=== PATIENT | male | born 1955 | race Caucasian/White ===

== ENCOUNTER → 2023-07-29 10:16 | Outpatient (REF) | payer MEDICARE, SELFPAY | LOC: RAD 10:16 | PROVIDERS: ATTENDING PHYSICIAN Internal Medicine Endocrinology, Diabetes & Metabolism; FAMILY PHYSICIAN Family Medicine | DX: R79.89 Other specified abnormal findings of blood chemistry (principal) | CPT/HCPCS: 76870; 93976 ==

== ENCOUNTER 2023-08-26 00:20 | Emergency (ER) | payer MEDICARE, SELFPAY ==
[2023-08-26 00:25] VITALS: BP 128/79; BMI 38.5
[2023-08-26 00:54] LABS: % Basophils 0.4 % (0-2); % Eosinophils 1.6 % (0-6); % Immature Granulocytes 1.3 % (0-0.5); % Lymphocytes 28.8 % (20.5-51.1); % Monocytes 12.5 % (1.7-9.3); % Neutrophils 55.4 % (42.2-75.2); Absolute Eosinophils 0.1 10^3/uL (0-0.7); Absolute Immature Granulocytes 0.1 10^3/uL (0-0.05); Absolute Monocytes 0.9 10^3/uL (0.1-0.6); Absolute Neutrophils 3.9 10^3/uL (1.4-6.5); Hematocrit 44.4 % (39.0-52.0); Hemoglobin 14.7 g/dL (13.0-18.0); Mean Corp Hgb Conc. 33.1 g/dL (33.0-37.0); Mean Corpuscular Hgb 30.7 pg (27.0-31.0); Mean Corpuscular Volume 92.7 fL (80.0-94.0); Mean Platelet Volume 9.9 fL (7.4-10.4); Nucleated Red Blood Cells % 0 % (-); Platelet Count 173 10^3/uL (130-400); Red Blood Cell Count 4.79 10^6/uL (4.70-6.10); Red Cell Dist. Width 14.6 % (11.5-14.5)
[2023-08-26 01:00] VITALS: BP 138/88
[2023-08-26 01:00] LABS: ALT (SGPT) 27 U/L (0-50); AST (SGOT) 40 U/L (17-59); Albumin 3.9 g/dl (3.5-5.0); Alkaline Phosphatase 67 U/L (38-126); Blood Urea Nitrogen 20 mg/dl (9-20); Carbon Dioxide 26 mmol/L (22-30); Chloride 104 mmol/L (98-107); Estimated Creatinine Clearance 110 ml/min; Glucose 150 mg/dl (70-99); Sodium 140 mmol/L (135-145); Total Protein 6.6 g/dl (6.3-8.2); eGFR > 60.00
--- NOTE | 2023-08-26 01:06 | ED.GENMED ---
Addendum entered and electronically signed by Bernard Barrientos DO 08/26/23 05:41:
Update, patient unable to tolerate lying down for CT despite 2 doses of lorazepam he uses BiPAP at home, has been compliant with his Eliquis since his surgery no tachycardia here no hypoxia I believe the risk-benefit of more sedatives does not
support pushing for the CT scan, as I believe the chance of having acute PE is low I reviewed my thought process with the patient, does have some lower extremity edema has used diuretic previously have suggested that he follow-up with his
spindle carver and/or his primary care provider
Original Note:
History of Present Illness
General
Chief Complaint: Breathing Problem
Source: patient
Exam Limitations: none
Time Seen by Provider: 08/26/23 00:39
Nursing documentation reviewed up to this point in time: agreed with
Travel History
Have you had any contact with someone who has COVID-19?: No
Do you have any symptoms of coronavirus? Fever > 100 degrees, chills, cough, shortness of breath, sore throat, loss of taste or smell, muscle aches, or headache?: No
History of Present Illness
History of Present Illness:
68-year-old male sleep apnea A-fib followed by Dr. Chase on Eliquis about 10 days status post low back procedure by portrait painter he had a screw inserted into his low back, Eliquis was held for 3 days since then he had increased lower
extremity edema, swelling, some shortness of breath no fever, no chest pains, still having pain in his back, previously on diuretic not now
Past History
Past History
ED Past Medical History: Arrthythmia (afib), HTN, Hypercholesterolemia, Other (Chronic cervical and lumbar disc disease) and Other (Obstructive sleep apnea, kidney stones, ulcerative colitis, peptic ulcer disease, pancreatitis); Negative Asthma, CAD
or Cancer
ED Past Surgical History: Cardiac (cardiac link), Cholecystectomy, Orthopedic and Other (Cervical laminectomy,); Negative Appendectomy, Bowel resection or Brain
Social History
Tobacco: Non-smoker
Alcohol: None
Drug: None
Personal: Single
Living: alone
Employment: Disabled
Family History
Family History: Hypertension, Early CAD and CAD; Negative Diabetes, Asthma or Cancer
Review of Systems
Review of Systems
All Other Systems: Not applicable
Constitutional: Denies fever
Respiratory: Reports trouble breathing; Denies cough
Cardiac: Reports no symptoms
ABD/GI: Reports no symptoms
: Reports frequency
Musculoskeletal: Reports muscle stiffness, edema and back pain
Skin: Reports no symptoms
Neurological: Reports no symptoms
Hematologic/Lymphatic: Reports no symptoms
Psychiatric: Reports no symptoms
Phy Exam
Physical Exam
Physical Exam:
Physical Exam
General: no apparent distress, not acutely ill
Neck: No jaundice
Heart: s1/s2 regular rate and rhythm, no murmur. equal radial pulses.
Lungs: Diminished bilateral
Abdomen: Nontender
Neuro: alert and oriented. no focal neurological deficits
Skin: no rash
Psychiatric: well kept. interactive and cooperative
Extremities: Nonpitting edema swelling bilateral calfs feet ankles
Scores
Heart Failure Risk
Heart Failure Risk Score: Yes
History of Stroke or TIA: No
History of intubation for respiratory distress: No
Heart rate on ED arrival >/= 110: No
SaO2 <90% on arrival on room air: No
HR >/=110 during 3min walk test (or too ill to perform test): No
ECG has acute ischemic changes: No
Urea >/=12mmol/L (BUN 33.6mg/dL): No
Serum CO2>/=35mmol/L: No
Troponin I or T elevated to [place] Level (0.4mg/dL): No
NT-proBNP >/=5,000ng/L (5,000pg/ml): No
HF Risk Score: 0
Admission Status: LOW RISK 2.8% Consider discharge to home with f/u visit to PCP/Barrel Straightener
Course
Orders/Labs/Results
Orders:
Orders
08/26/23 00:33
EKG [Electrocardiogram (*1)] Urgent
Reason for Study: Shortness of Breath
EKG- Treatment ONCE
08/26/23 00:36
Complete Blood Count/With Diff Urgent
Comprehensive Metabolic Panel Urgent
08/26/23 00:44
NT-proBNP Urgent
Comment: ADDED
Troponin I Urgent
08/26/23 01:02
Add On- LAB Urgent
Tests Added?: pBNP
08/26/23 01:03
CR Chest - 2 Views Urgent
Comment:
Reason For Exam: sob
US Periph Venous LOWER Ext Melquiades Urgent
Comment:
Reason For Exam: swelling
08/26/23 02:22
Furosemide [Lasix] 60 mg IV NOW STA
Abnormal Lab Results
08/26/23
00:36
RDW 14.6 H %
(11.5-14.5)
Abs Immat Gran (auto) 0.1 H 10^3/uL
(0-0.05)
Absolute Monos (auto) 0.9 H 10^3/uL
(0.1-0.6)
Immature Gran % 1.3 H %
(0-0.5)
Monocytes % 12.5 H %
(1.7-9.3)
Glucose 150 H mg/dl
(70-99)
08/26/23 00:36
08/26/23 00:36
Vital Signs
Initial and Last Documented VS:
Initial Vital Signs
Temp Pulse Resp BP Pulse Ox
98.8 F 79 22 128/79 96
08/26/23 00:25 08/26/23 00:25 08/26/23 00:25 08/26/23 00:25 08/26/23 00:25
Last Documented Vital Signs
Temp Pulse Resp BP Pulse Ox
98.8 F 77 14 138/88 98
08/26/23 00:25 08/26/23 01:00 08/26/23 01:00 08/26/23 01:00 08/26/23 01:00
MDM/Problems Addressed
Differential Diagnosis Includes:
Volume overload, right-sided heart failure dependent edema, DVT
MDM/Problems Addressed:
Lower extremity edema
Chronic conditions affecting care: HTN and Arrhythmia
Acute Exacerbation and/or Progression of Chronic Illness: HTN and Arrhythmia
*Radiology
Radiology exam reviewed: preliminary read by ED provider
*Pulse Oximetry
Patient hypoxic: no
*EKG
Interpreted by ED Provider?: Yes
Interpretation: normal
Comparison EKG: no comparison EKG present
Heart Rate: 78
Rate: normal
Rhythm: sinus
Ischemia: non-specific ST changes
*Photography Intern Interpretation
Rate: normal
Interpretation: normal
Heart Rate: 78
Rhythm: sinus
*Critical Care Note
Total Time (30-74mins, 75-104mins- exclusive of procedures): Not Applicable
Update Note
Update Note:
Update 1:42 AM labs including troponin proBNP noted verbal report ultrasounds bilaterally are negative
Chest x-ray noted perhaps some extra fluid, will start a diuretic
ED Attending Note
-
Portions of this chart may have been created with voice recognition software.� Occasional wrong word or��sound alike� substitutions may have occurred due to the inherent limitations of voice recognition software.
Discharge Plan
Departure
Prescriptions:
No Action
diltiazem HCl 240 MG capsule,extended release 24hr
240 mg PO DAILY
cyanocobalamin (vitamin B-12) 1,000 MCG tablet
1,000 mcg PO DAILY
red yeast rice 600 MG tablet
600 mg PO DAILY
duloxetine 30 MG capsule,delayed release(DR/EC)
30 mg PO HS
cholecalciferol (vitamin D3) [Vitamin D3] 125 mcg (5,000 unit) Tablet
125 mcg PO DAILY
flaxseed oil 1,000 mg Capsule
1,000 mg PO DAILY
Eliquis 5 MG tablet
5 mg PO BID
metformin 500 mg Tablet
500 mg PO BID
oxycodone-acetaminophen 10-325 mg tablet
1 tab PO Q4H PRN (Reason: moderate pain)
Patient Comments:
12/11/2022: last filled 11/20/22, 150 tabs for 30 days from [facility]
doxycycline hyclate 100 mg Tablet
100 mg PO BID
tamsulosin 0.4 mg capsule
0.4 mg PO BID
valacyclovir [Valtrex] 1 gram tablet
1,000 mg PO TID Qty: 30 0RF
Referrals:
Honorio Yuan Jr., DO [Family Provider] -
Interventions
Interventions:
*Risk Screen - Suicide Last Done: 08/26/23 00:25
*General Assessment Last Done: 08/26/23 00:25
*Neglect/Abuse Screening Last Done: 08/26/23 00:25
ED- Fall Risk Assessment Last Done: 08/26/23 00:36
*ED COVID-19 Vaccine History Last Done: 08/26/23 00:25
ED- Cardiac Assessment Last Done: 08/26/23 00:36
ED- Pulmonary Assessment Last Done: 08/26/23 00:36
Discharge Date and Time
Print Language: BELARUSIAN
[2023-08-26 01:14] LABS: Troponin I < 0.012 ng/ml
[2023-08-26 01:25] LABS: NT-proBNP 53.2 pg/ml
[2023-08-26 02:41] VITALS: BP 147/82
[2023-08-26] MEDS: LASIX 60 MG IV (02:41)
[2023-08-26] MEDS: ATIVAN 1 MG PO (03:02)
[2023-08-26] MEDS: ATIVAN 1 MG IV (04:54)
== END 2023-08-26 06:40 | disposition home or self-care (01) ==
LOC: EMR 00:20
PROVIDERS: EMERGENCY PHYSICIAN Emergency Medicine; FAMILY PHYSICIAN Family Medicine
DX: R60.0 Localized edema (principal); G47.33 Obstructive sleep apnea (adult) (pediatric); E78.00 Pure hypercholesterolemia, unspecified; I10 Essential (primary) hypertension; Z79.01 Long term (current) use of anticoagulants; Z82.49 Family history of ischemic heart disease and other diseases of the circulatory system; Z87.11 Personal history of peptic ulcer disease; Z87.442 Personal history of urinary calculi; Z90.49 Acquired absence of other specified parts of digestive tract
CPT/HCPCS: 99284; 96374; 96375; 71046; 80053; 83880; 84484; 85025; 93005; 93970

== ENCOUNTER 2023-09-25 19:10 | Emergency (ER) | payer MEDICARE, SELFPAY ==
[2023-09-25 19:17] VITALS: BP 156/100
[2023-09-25 19:29] VITALS: BP 153/118
[2023-09-25 20:06] VITALS: BMI 38.1
[2023-09-25 20:10] VITALS: BP 154/85
[2023-09-25 20:10] LABS: % Basophils 0.1 % (0-2); % Eosinophils 0.8 % (0-6); % Immature Granulocytes 0.3 % (0-0.5); % Lymphocytes 17.8 % (20.5-51.1); % Monocytes 9.2 % (1.7-9.3); % Neutrophils 71.8 % (42.2-75.2); Absolute Eosinophils 0.1 10^3/uL (0-0.7); Absolute Lymphocytes 1.4 10^3/uL (1.2-3.4); Absolute Monocytes 0.7 10^3/uL (0.1-0.6); Absolute Neutrophils 5.7 10^3/uL (1.4-6.5); Hematocrit 46.4 % (39.0-52.0); Hemoglobin 16.3 g/dL (13.0-18.0); Mean Corp Hgb Conc. 35.1 g/dL (33.0-37.0); Mean Corpuscular Hgb 30.8 pg (27.0-31.0); Mean Corpuscular Volume 87.7 fL (80.0-94.0); Mean Platelet Volume 9.9 fL (7.4-10.4); Nucleated Red Blood Cells % 0 % (-); Platelet Count 191 10^3/uL (130-400); Red Blood Cell Count 5.29 10^6/uL (4.70-6.10); Red Cell Dist. Width 13.2 % (11.5-14.5); White Blood Cell Count 7.9 10^3/uL (4.8-10.8)
[2023-09-25 20:29] LABS: ALT (SGPT) 33 U/L (0-50); AST (SGOT) 44 U/L (17-59); Albumin 4.6 g/dl (3.5-5.0); Alkaline Phosphatase 71 U/L (38-126); Blood Urea Nitrogen 18 mg/dl (9-20); Calcium 9.5 mg/dl (8.4-10.2); Carbon Dioxide 26 mmol/L (22-30); Chloride 103 mmol/L (98-107); Estimated Creatinine Clearance 90 ml/min; Glucose 128 mg/dl (70-99); Potassium 4.1 mmol/L (3.5-5.1); Sodium 140 mmol/L (135-145); Total Bilirubin 0.9 mg/dl (0.2-1.3); Total Protein 7.2 g/dl (6.3-8.2); eGFR > 60.00
[2023-09-25 20:34] LABS: Troponin I < 0.012 ng/ml
[2023-09-25 21:00] VITALS: BP 180/85
[2023-09-25 21:18] LABS: NT-proBNP 140 pg/ml
[2023-09-25 22:00] VITALS: BP 184/89
--- NOTE | 2023-09-25 22:46 | ED.GENMED ---
History of Present Illness
General
Chief Complaint: Chest Pain
Source: patient
Exam Limitations: none
Time Seen by Provider: 09/25/23 19:26
History of Present Illness
History of Present Illness:
68-year-old male who presents again with a variety of complaints. He states for the last 3 weeks has had lower extremity edema, off-and-on chest pain, headaches, insomnia and feeling like his esophagus is closing. Patient saw his PCP today and was
switched to a different diuretic. Patient also states a lot of the symptoms started shortly after back procedure. In addition at the same time he was started on Lyrica. His doctor recently stopped the Lyrica and he stopped it 2 days ago. The
patient states that at home he paces at night and cannot sleep. No fevers. No abdominal pain. Patient states the back procedure really did not do much for his back and he has had back pain. He was recently here and had bilateral lower extremity
Dopplers. He also has been on Lasix.
Past History
Past History
ED Past Medical History: Arrthythmia (afib), HTN, Hypercholesterolemia, Other (Chronic cervical and lumbar disc disease) and Other (Obstructive sleep apnea, kidney stones, ulcerative colitis, peptic ulcer disease, pancreatitis); Negative Asthma, CAD
or Cancer
ED Past Surgical History: Cardiac (cardiac link), Cholecystectomy, Orthopedic and Other (Cervical laminectomy,); Negative Appendectomy, Bowel resection or Brain
Social History
Tobacco: Non-smoker
Alcohol: None
Drug: None
Personal: Single
Living: alone
Employment: Disabled
Family History
Family History: Hypertension, Early CAD and CAD; Negative Diabetes, Asthma or Cancer
Phy Exam
Physical Exam
Physical Exam:
CONSTITUTIONAL Patient alert and oriented to person, place and time. Well-appearing. Vital signs reviewed. Obese
HEAD atraumatic, normocephalic.
EYES eyelids normal to inspection, Extraocular muscles intact, Conjunctiva normal, Sclera normal.
NECK normal range of motion, Trachea midline, no jugular venous distention.
RESPIRATORY CHEST No respiratory distress noted, Chest expansion equal, Bilateral breath sounds clear.
CARDIOVASCULAR regular rate and rhythm, Heart sounds normal.
ABDOMEN abdomen nontender, Bowel sounds normal. No distention.
BACK normal inspection, no obvious deformities
UPPER EXTREMITY range of motion normal, Motor strength normal, no cyanosis, no edema.
LOWER EXTREMITY range of motion normal, Motor strength normal, no cyanosis, bilateral lower extremity edema.
NEURO Speech normal, No focal motor deficits, [place] coma scale 15, Memory normal, Cranial Nerves intact to screening exam.
SKIN skin warm, dry, and normal in color.
PSYCHIATRIC patient oriented to person place and time, Normal affect.
Scores
Heart Score for Chest Pain Patients
STEMI patient?: Not applicable
Course
Orders/Labs/Results
Orders:
Orders
09/25/23 19:11
EKG [Electrocardiogram (*1)] Urgent
Reason for Study: Chest Pain
EKG- Treatment ONCE
09/25/23 19:16
Electrocardiogram (*1) Urgent
Reason for Study: Chest Pain
Cardiac Monitoring- Treatment ONCE
IV Insert/Care/Rem.- Treatment PRN
O2 Therapy [RESP] Urgent
Titrate/Wean O2 to maintain O2 sat greater than (%): 90
Special Instructions: Maintain sats >/=90%
Pulse Ox/spot Check [RESP] Urgent
Quantity: 1
Special Instructions: ON ROOM AIR
09/25/23 19:47
CR Chest - 2 Views Urgent
Comment:
Reason For Exam: cp, sob
Neck Soft Tissue [CR Soft Tissue Neck ] Urgent
Comment:
Reason For Exam: difficlty breathing, swallowing
09/25/23 20:01
Complete Blood Count/With Diff Urgent
Comprehensive Metabolic Panel Urgent
NT-proBNP Urgent
Comment: ADD ON
Troponin I Urgent
09/25/23 22:53
EKG [Electrocardiogram (*1)] Urgent
Reason for Study: Vertigo / Dizzy
EKG- Treatment ONCE
09/25/23 23:09
Dexamethasone Sod Phosphate [Decadron] 10 mg IV NOW STA
Lorazepam [Ativan] 1 mg IV NOW STA
Abnormal Lab Results
09/25/23
20:01
Absolute Monos (auto) 0.7 H 10^3/uL
(0.1-0.6)
Lymphocytes % 17.8 L %
(20.5-51.1)
Glucose 128 H mg/dl
(70-99)
09/25/23 20:01
09/25/23 20:01
Vital Signs
Initial and Last Documented VS:
Initial Vital Signs
Temp Pulse Resp BP Pulse Ox
98.1 F 87 18 156/100 98
09/25/23 19:17 09/25/23 19:17 09/25/23 19:17 09/25/23 19:17 09/25/23 19:17
Last Documented Vital Signs
Temp Pulse Resp BP Pulse Ox
98.1 F 82 19 160/91 97
09/25/23 19:17 09/25/23 23:45 09/25/23 23:45 09/25/23 23:00 09/25/23 22:45
MDM/Problems Addressed
MDM/Problems Addressed:
Lower extremity edema, medication side effect, anxiety, headache
*Radiology
Radiology exam reviewed: all reviewed NAD by ED Provider
*Pulse Oximetry
Patient hypoxic: no
*EKG
Interpreted by ED Provider?: Yes
Interpretation: normal
Rate: normal
Rhythm: sinus
Garita: normal axis
Ischemia: no ischemia
*Bridge Engineer Interpretation
Rate: normal
Interpretation: normal
Rhythm: sinus
*Critical Care Note
Total Time (30-74mins, 75-104mins- exclusive of procedures): Not Applicable
Data Reviewed
Review of Other/Old Records Reveals: Labs (Prior labs reviewed)
Source: patient
Further Testing Considered But Not Given:
Consider CTA but patient already on Eliquis
Patient Management
Escalation/DeEscalation of care consider admission/obs:
Lengthy discussion with the patient as he is very concerned. The patient has multiple symptoms. I suspect some of his symptoms are related to being on Lyrica as his symptoms started shortly after being started on Lyrica. He does have the common
side effects of Lyrica. The patient is well-appearing and no signs of congestive heart failure or ACS. Patient already started on diuretic by PCP. Will trial anxiolytics. 1 dose of steroid because of his feeling of tight throat. No stridor.
Already on Eliquis. Will need PCP follow-up. I did instruct the patient that he cannot drive on lorazepam
ED Attending Note
-
Portions of this chart may have been created with voice recognition software.� Occasional wrong word or��sound alike� substitutions may have occurred due to the inherent limitations of voice recognition software.
Discharge Plan
Departure
Patient Disposition: Home (Routine Discharge)
Date of Disposition: 09/25/23
Time of Disposition: 23:18
Patient with high blood pressure during this ER visit?: Yes
Discharge Problem:
Edema, Drug side effects, Atypical chest pain
Instructions: Swelling, Chest Pain PCP Follow Up, BLOOD PRESSURE
Prescriptions:
New
lorazepam 1 mg tablet
1 mg PO TID PRN (Reason: anxiety) Qty: 14 0RF
No Action
diltiazem HCl 240 MG capsule,extended release 24hr
240 mg PO DAILY
cyanocobalamin (vitamin B-12) 1,000 MCG tablet
1,000 mcg PO DAILY
duloxetine 30 MG capsule,delayed release(DR/EC)
30 mg PO HS
cholecalciferol (vitamin D3) [Vitamin D3] 125 mcg (5,000 unit) Tablet
125 mcg PO DAILY
Eliquis 5 MG tablet
5 mg PO BID
atorvastatin 20 mg Tablet
20 mg PO DAILY
pyridoxine (vitamin B6) [Vitamin B-6] 100 mg Tablet
100 mg PO DAILY
oxycodone-acetaminophen 7.5-325 mg tablet
1 tab PO Q4H PRN (Reason: moderate pain)
Patient Comments:
09/25/2023: last filled 09/19/23, 150 tabs for 25 days from [facility]
glipizide 5 mg Tablet
2.5 mg PO DAILY
Referrals:
Cesar Pitt MD [Family Provider] -
Activity Restrictions/Additional Instructions:
Possible side effect of Lyrica
Please see your doctor in the next 3 to 5 days for follow-up and reevaluation. Return admitted for worsening symptoms, shortness of breath, fevers, chest pain or any other concerns. Please elevate your legs when possible. Please continue your
home medications including your new medication by your doctor. Please do not drive or operate machinery while on lorazepam.
Interventions
Interventions:
*Risk Screen - Suicide Last Done: 09/25/23 19:17
*General Assessment Last Done: 09/25/23 19:17
*Neglect/Abuse Screening Last Done: 09/25/23 19:17
ED- Fall Risk Assessment Last Done: 09/25/23 20:10
*ED COVID-19 Vaccine History Last Done: 09/25/23 20:12
ED- Cardiac Assessment Last Done: 09/25/23 20:06
Discharge Date and Time
Print Language: AMERICAN
[2023-09-25 23:00] VITALS: BP 160/91
[2023-09-25] MEDS: ATIVAN 1 MG IV (23:41)
[2023-09-25] MEDS: DECADRON 10 MG IV (23:43)
== END 2023-09-26 00:21 | disposition home or self-care (01) ==
LOC: EMR 19:10
PROVIDERS: EMERGENCY PHYSICIAN Emergency Medicine; FAMILY PHYSICIAN Internal Medicine
DX: R07.89 Other chest pain (principal); R60.0 Localized edema; R51.9 Headache, unspecified; G47.00 Insomnia, unspecified; I10 Essential (primary) hypertension; I48.91 Unspecified atrial fibrillation; E78.00 Pure hypercholesterolemia, unspecified; G47.33 Obstructive sleep apnea (adult) (pediatric); K51.90 Ulcerative colitis, unspecified, without complications; Z90.49 Acquired absence of other specified parts of digestive tract; Z87.11 Personal history of peptic ulcer disease; Z87.442 Personal history of urinary calculi; Z88.8 Allergy status to other drugs, medicaments and biological substances; Z91.011 Allergy to milk products
CPT/HCPCS: 99285; 96374; 96375; 94760; 70360; 71046; 80053; 83880; 84484; 85025; 93005

== ENCOUNTER → 2024-02-24 12:03 | Outpatient (REF) | payer MEDICARE, SELFPAY | LOC: MRI 12:03 | PROVIDERS: ATTENDING PHYSICIAN Physician Assistant; FAMILY PHYSICIAN Internal Medicine | DX: D75.1 Secondary polycythemia (principal) | CPT/HCPCS: 72197; A9575 ==

== ENCOUNTER 2024-03-14 15:10 | Inpatient (IN) | payer MEDICARE, SELFPAY ==
[2024-03-14] VITALS (12 sets, daily range): BP systolic 132–180; BP diastolic 85–107; BMI 36.8
[2024-03-14] MEDS: ROXICODONE 5 MG PO ×2 (10:57→11:24)
--- NOTE | 2024-03-14 12:15 | ED.GENMED ---
History of Present Illness
General
Chief Complaint: Nose Bleed
Source: patient
Time Seen by Provider: 03/14/24 10:29
History of Present Illness
History of Present Illness:
68-year-old male with past medical history of paroxysmal atrial fibrillation, CHF, hypertension, previous GI bleeding, previous prostate cancer presenting to the emergency department for evaluation after he started having bilateral nare epistaxis
around 7 AM to 7:30 AM with persistent bleeding since. Patient states that he has had mild URI-like symptoms over the last 3 to 4 days. States he had bleeding 2 days ago but this resolved spontaneously. Denies any history of similar. Patient
notes that he wears a BiPAP machine at nighttime for sleep apnea. Patient's last dose of Eliquis was around 1030 to 11 PM last night. Denies any infectious symptoms.
Past History
Past History
ED Past Medical History: Arrthythmia (afib), HTN, Hypercholesterolemia, Other (Chronic cervical and lumbar disc disease) and Other (Obstructive sleep apnea, kidney stones, ulcerative colitis, peptic ulcer disease, pancreatitis); Negative Asthma, CAD
or Cancer
ED Past Surgical History: Cardiac (cardiac link), Cholecystectomy, Orthopedic and Other (Cervical laminectomy,); Negative Appendectomy, Bowel resection or Brain
Social History
Tobacco: Non-smoker
Alcohol: None
Drug: None
Personal: Single
Living: alone
Employment: Disabled
Family History
Family History: Hypertension, Early CAD and CAD; Negative Diabetes, Asthma or Cancer
Review of Systems
Review of Systems
All Other Systems: ROS reviewed and negative except as documented in HPI and ROS
Phy Exam
Physical Exam
Physical Exam:
GENERAL: Alert, speaking full sentences
HEAD: NCAT
EYE: clear conjunctiva
NECK: Supple
ENT: brisk bleeding from bilateral nares. Unable to identify area where bleeding originating. Significant bleeding noted in posterior oropharynx but maintaining airway. no tonsillar edema/exudates
CARDIAC: Regular rate and rhythm .
LUNGS: Clear breath sounds bilaterally, no acute respiratory distress, no wheezes/rales/rhonchi. Intermittently coughing up large dark clots
NEUROLOGICAL: Alert and oriented
SKIN: Warm and dry, skin intact.
MUSCULOSKELETAL: No edema, well perfused.
PSYCH: Normal and appropriate interaction.
Scores
Heart Failure Risk
Heart Failure Risk Score: Not Applicable
Heart Score for Chest Pain Patients
STEMI patient?: Not applicable
Withdrawal Assessment of Alcohol
Withdrawal Assessment Completed?: Not applicable
Course
Orders/Labs/Results
Orders:
Orders
03/14/24 Breakfast
NPO
Allow oral meds: Yes
Allow clear liquids: Sips of Clears
NPO with Ice Chips: Yes
Comment: can rsume low cholesterol 2000 harish diet when clear by ENT surgeon after OR
03/14/24 10:31
Tranexamic Acid 1,000 mg .ROUTE .STK-MED ONE
03/14/24 10:55
Oxycodone [Roxicodone] 5 mg .ROUTE .STK-MED ONE
03/14/24 11:18
Oxycodone [Roxicodone] 5 mg PO NOW STA
03/14/24 11:22
Oxycodone [Roxicodone] 5 mg .ROUTE .STK-MED ONE
03/14/24 11:24
Oxycodone [Roxicodone] 5 mg PO NOW STA
03/14/24 12:06
Blood Group&Type Stat
[employer] Wristband Number:
Complete Blood Count/No Diff Stat
PT/INR [Prothrombin Time] Stat
03/14/24 12:12
Type+Screen Stat
[employer] Wristband Number:
Prothrombin Complex(Pcc),Human [Kcentra] 2,500 unit Empty Viaflex Container 100 ml [Viaflex Empty Container] 0 ml IV NOW
Does patient have a dx of serious acute active bleeding?: Yes
Does patient have prior history of HIT?: No
03/14/24 12:28
Prothrombin Complex(Pcc),Human [Kcentra] 2,549 unit Empty Viaflex Container 100 ml [Viaflex Empty Container] 100 ml IV NOW
Does patient have a dx of serious acute active bleeding?: Yes
Does patient have prior history of HIT?: No
03/14/24 12:30
Dexamethasone Sod Phosphate [Decadron] 20 mg .ROUTE .STK-MED ONE
Lidocaine 2% Mpf [Xylocaine Mpf 2%] 100 mg .ROUTE .STK-MED ONE
Ondansetron Injectable [Zofran] 4 mg .ROUTE .STK-MED ONE
Propofol [Diprivan] 20 ml .ROUTE .STK-MED
Rocuronium Morgan [Rocuronium] 50 mg .ROUTE .STK-MED ONE
03/14/24 12:31
Fentanyl Citrate/Pf [Sublimaze] 100 mcg .ROUTE .STK-MED ONE
Midazolam HCl [Versed] 2 mg .ROUTE .STK-MED ONE
03/14/24 12:42
Lorazepam [Ativan] 0.25 mg IV NOW STA
03/14/24 12:43
Lorazepam [Ativan] 2 mg .ROUTE .STK-MED ONE
03/14/24 12:57
Admit/Transfer Patient As Directed
Co-Sign Provider:
Level of Care: Inpatient admission
Assign to:: Telemetry
Physician / Group: [email or web address]
Diagnosis: intractable epistaxis , Systolic HTN, Anxiety
Reason for Telemetry: Arrhythmia
Date to Stop Telemetry: 03/17/24
Time to Stop Telemetry: 11:00
Reason for Hospitalization: intractable epistaxis , Systolic HTN, Anxiety
Expected length of stay greater than two midnights?: Yes
ELOS- Estimated Length of Stay in days: 2
I certify the patient meets the requirements for IP care: Yes
03/14/24 12:59
Code Status As Directed
Resuscitation Status: Full Code
03/14/24 13:39
Fentanyl Citrate/Pf [Sublimaze] 25 mcg IV PACU-Q5MPRN PRN
Fentanyl Citrate/Pf [Sublimaze] 50 mcg IV PACU-Q5MPRN PRN
Meperidine [Demerol] 12.5 mg IV PACU-Q5MPRN PRN
Ondansetron Injectable [Zofran] 4 mg IV PACU-ONCEPRN PRN
Prochlorperazine [Compazine] 5 mg IV PACU-ONCEPRN PRN
Notify MD As Directed
Notify physician if: for SDS patients with known or suspected sleep obstructive sleep apnea, monitor in the
PACU.
Notify MD for any apneic/desaturation episodes
O2 Therapy [RESP] Urgent
Titrate/Wean O2 to maintain O2 sat greater than (%): 92
Special Instructions: -Provide supplemental oxygen to achieve O2 sat of 92% or greater.
-After 15 min, may wean O2 and discontinue if patient is able to maintain O2 sat of 92%
or greater during recovery period.
If patient is a discharge home, without oxygen therapy, notify anestheiologist if
unable to maintain O2 SAT of 92% or greater on room air for MD clearance.
03/14/24 14:05
Bacitracin Zinc [Bacitracin Ointment] 1 applic .ROUTE .STK-MED ONE
Bisacodyl [Dulcolax] 10 mg RECTAL [id number] PRN
Docusate W/Senna [Senokot-S] 1 tablet PO BIDPRN PRN
Lorazepam [Ativan] 1 mg IV Q6HPRN PRN
Polyethylene Glycol Powder [Miralax] 17 grams PO DAILYPRN PRN
03/14/24 14:05
ENT CONSULT Urgent
Consulting Provider: Faizan Yañez
Was physician already notified: Yes
Reason for Consult: intractable epistaxis , Systolic HTN, Anxiety
Activity As Directed
Activity Level: With Assistance
Intake/ Output As Directed
Frequency: Per unit guidelines
Pneumatic Compression Sleeves As Directed
Type: Knee high
Vital Signs As Directed
Frequency: Per unit guidelines
DX Deep Vein Thrombosis Video Routine
03/14/24 14:39
Dextrose 50%-Water [Dextrose 50% Syringe] 12.5 grams IV PROCEDURE-PRN PRN
Fentanyl Citrate/Pf [Sublimaze] 25 mcg IV PACU-Q5MPRN PRN
Fentanyl Citrate/Pf [Sublimaze] 50 mcg IV PACU-Q5MPRN PRN
Insulin Aspart [NOVOLOG vial] See Protocol SC PROCEDURE- Q2H PRN PRN
Meperidine [Demerol] 12.5 mg IV PACU-Q5MPRN PRN
Ondansetron Injectable [Zofran] 4 mg IV PACU-ONCEPRN PRN
Prochlorperazine [Compazine] 5 mg IV PACU-ONCEPRN PRN
Bedside Glucose Monitoring As Directed
Frequency: Q2H
Additional Instructions:: UNTIL PATIENT LEAVES PROCEDURE AREA
Notify MD As Directed
Notify physician if: for SDS patients with known or suspected sleep obstructive sleep apnea, monitor in the
PACU.
Notify MD for any apneic/desaturation episodes
O2 Therapy [RESP] Urgent
Titrate/Wean O2 to maintain O2 sat greater than (%): 92
Special Instructions: -Provide supplemental oxygen to achieve O2 sat of 92% or greater.
-After 15 min, may wean O2 and discontinue if patient is able to maintain O2 sat of 92%
or greater during recovery period.
If patient is a discharge home, without oxygen therapy, notify anestheiologist if
unable to maintain O2 SAT of 92% or greater on room air for MD clearance.
03/14/24 15:44
Comprehensive Metabolic Panel Urgent
03/14/24 16:00
Ampicillin/Sulbactam 1.5 G [Unasyn] 1.5 gm 0.9% Sodium Chloride [Nss] 50 ml IV Q6H
03/14/24 18:00
Atorvastatin [Lipitor] 20 mg PO QPM
03/15/24 06:00
Basic Metabolic Panel IN AM
03/15/24 08:00
Diltiazem Extended Release [Cardizem Cd] 240 mg PO DAILY
03/17/24 11:00
DC Protocol for Telemetry ONCE
Abnormal Lab Results
03/14/24 03/14/24
12: 14:33
RBC 6.39 H 10^6/uL
(4.70-6.10)
Hgb 20.3 H* g/dL
(13.0-18.0)
Hct 58.7 H %
(39.0-52.0)
MCH 31.8 H pg
(27.0-31.0)
POC Glucose 124 H mg/dl
(70-99)
03/14/24 12:06
03/14/24 12:06
Vital Signs
Initial and Last Documented VS:
Initial Vital Signs
Pulse Resp BP Pulse Ox
76 20 180/107 98
03/14/24 10:05 03/14/24 10:05 03/14/24 10:05 03/14/24 10:05
Last Documented Vital Signs
Temp Pulse Resp BP Pulse Ox
97.8 F 105 18 132/96 96
03/14/24 15:45 03/14/24 15:45 03/14/24 15:45 03/14/24 15:45 03/14/24 15:45
Procedures
Nosebleed
Drug treatment: Epinephrine and Tranexamic Acid
Treatment: local pressure applied and Posterior balloon (left nare)
Post treatment bleeding: other (continued brisk bleeding)
Additional information:
Despite left near posterior packing patient continued to have brisk bleeding from the right nare. Bleeding was less than from the left nare
MDM/Problems Addressed
Differential Diagnosis Includes:
posterior bleeding, anterior bleeding, anemia, viral URI
MDM/Problems Addressed:
68-year-old male presenting to the emergency department for significant bilateral nare epistaxis that started earlier this morning around 7 AM. Unfortunately patient had brisk bleeding from both naris and was unable to identify as to which nare
bleeding was more pronounced from. Patient stating that he is unsure as to which nare blood first as he states he experienced bleeding from both around the same time. I suspect patient's recent viral syndrome is likely contributing to symptoms.
Due to the risk of bleeding combined with patient being on Eliquis we first attempted holding pressure for approximately 30 minutes and had instilled aerosolized TXA with 5 cc being instilled into each nare. Bleeding persisted despite this.
Patient was agreeable to posterior packing and I was able to place a 7-1/2 cm Rhino Rocket into the left nare however patient did not tolerate this very well and I was unable to fully advance the Rhino Rocket into place with the bottom portion still
having about 1 cm remaining outside of the left nare but bleeding had subsided on the left side. Bleeding persisted on the right. Patient refusing packing on the right side secondary to pain. Attempted to treat with oxycodone. Patient initially
received a 5 mg dose but did not have any relief so was given a second oxycodone dose. I contacted ENT on-call and spoke with Dr. Yañez who initially advised for us to place packing to the right nare but explained that patient refusing as well as
due to patient being on BiPAP at nighttime for sleep patient was resistant to have this done. ENT coming to the bedside.
*Pulse Oximetry
Patient hypoxic: no
*Chassis Inspector Interpretation
Rate: normal
Rhythm: sinus
*Critical Care Note
Total Time (30-74mins, 75-104mins- exclusive of procedures): 95
comment:
Critical care statement: A total of 95 minutes of critical care time was provided for this patient. This includes management of unstable vital signs, evaluation of the patient at bedside, reviewing the patient's pertinent medical records, discussion
with consultants, review of old EKGs and review of pertinent medical records. This time with separate from time utilized to perform the aforementioned documented procedures
Data Reviewed
Review of Other/Old Records Reveals: Labs and Records
Patient Management
Discussion with other providers: Hospitalist and Precision Lens Grinder
Escalation/DeEscalation of care consider admission/obs:
ENT came to bedside. Was able to convince patient that they needed to place further packing. We were able to suction multiple large clots out of the right nare and place Merocel. Unfortunately patient continued to bleed around the Merocel.
Patient was consented for the OR by ENT. I had to remain at bedside due to the continued bleeding and holding pressure. Labs sent. Patient has a hemoglobin of 20.3 which I suspect is from hemoconcentration as patient has not eaten or drank
anything yet today. Due to patient being on Eliquis with a continued bleeding decision was made to reverse with Kcentra. Patient last dose of Eliquis was 1030 to 11 PM last night and is currently in a normal sinus rhythm. I notified cardiology
team who will consult on the patient. Hospitalist team accepts for continued evaluation and treatment. Anesthesia also coming to the bedside to take patient to the OR.
ED Attending Note
-
Portions of this chart may have been created with voice recognition software.� Occasional wrong word or��sound alike� substitutions may have occurred due to the inherent limitations of voice recognition software.
Discharge Plan
Departure
Patient Disposition: OR
Date of Disposition: 03/14/24
Time of Disposition: 12:15
Presentation/result/management discussed w/ accepting MD/DO: Hospitalist
Discharge Problem:
Posterior epistaxis
Interventions
Interventions:
*Risk Screen - Suicide Last Done: 03/14/24 10:05
*General Assessment Last Done: 03/14/24 13:08
*Neglect/Abuse Screening Last Done: 03/14/24 10:05
ED- Fall Risk Assessment Last Done: 03/14/24 13:08
*ED COVID-19 Vaccine History Last Done: 03/14/24 13:08
*Nursing Disposition Last Done: 03/14/24 13:08
ED-EENT Assessment Last Done: 03/14/24 11:57
Discharge Date and Time
Discharge Date/Time: 03/14/24 13:10
[2024-03-14 12:21] LABS: Hematocrit 58.7 % (39.0-52.0); Hemoglobin 20.3 g/dL (13.0-18.0); Mean Corp Hgb Conc. 34.6 g/dL (33.0-37.0); Mean Corpuscular Hgb 31.8 pg (27.0-31.0); Mean Corpuscular Volume 91.9 fL (80.0-94.0); Mean Platelet Volume 9.3 fL (7.4-10.4); Platelet Count 159 10^3/uL (130-400); Red Blood Cell Count 6.39 10^6/uL (4.70-6.10); Red Cell Dist. Width 13.3 % (11.5-14.5)
[2024-03-14 12:35] LABS: PT 14.5 Sec (11.4-14.6)
[2024-03-14] MEDS: ATIVAN 0.25 MG IV (12:50)
--- NOTE | 2024-03-14 12:51 | HPS.HSE ---
Family Physician
-
Family Physician: Cesar Pitt
Chief Complaint
-
Bleeding nose , on Eliquis for Prx AF
History of Present Illness
HPI
68M HX chr Eliquis on Prx AF urgently seen at ER pending OR:
- arrived to ER with bloody nos b/l nares for last 3hrs
- last dose of Elquis last night
- Recently sick with cold Sx for the 3 days
- bleeding started after blowing nose
- felt clogged ear
@ ER
Both nares are packed posteriorly
Intractable b/l epistaxix
Stat KCentra
Pending urgent OR by ENT
Medical History
Past Medical History
Past Medical History: Reports Arrhythmia (Prx AF on Eliquis ), HTN, Hypercholesterolemia and NIDDM
Past Surgical History: Reports Other
Social History
Unable to obtain full social history at this time due to: Other
Tobacco: Other
Alcohol: Other
Drug: Other
Personal: Other
Family History
Family History: Not pertinent
Allergies / Home Medications
Allergies reflects when Allergies were last updated in [facility].
Home Medications with original date entered in [facility]
Allergy/Medication List:
Allergies
Allergy/AdvReac Type Severity Reaction Status Date / Time
lactose Allergy diarrhea Verified 03/14/24 10:05
metformin Allergy Nausea / Verified 03/14/24 10:05
Vomiting
Home Medications
cyanocobalamin (vitamin B-12) 1,000 mcg tablet 1,000 mcg PO DAILY Supplement 06/14/19
diltiazem HCl 240 mg capsule,extended release 24 hr 240 mg PO DAILY Heart disease/condition 06/14/19
duloxetine 30 mg capsule,delayed release 30 mg PO HS Mental Health/Anxiety 09/21/21
cholecalciferol (vitamin D3) 125 mcg (5,000 unit) tablet (Vitamin D3) 125 mcg PO DAILY Supplement 12/12/21
apixaban 5 mg tablet (Eliquis) 5 mg PO BID Blood Clot Prevention/Tx 11/13/22
atorvastatin 20 mg tablet 20 mg PO DAILY 09/25/23
glipizide 5 mg tablet 2.5 mg PO DAILY 09/25/23
lorazepam 1 mg tablet 1 mg PO TID PRN anxiety #14 tabs 09/25/23
oxycodone-acetaminophen 7.5 mg-325 mg tablet 1 tab PO Q4H PRN moderate pain 09/25/23
pyridoxine (vitamin B6) 100 mg tablet (Vitamin B-6) 100 mg PO DAILY 09/25/23
Review of Systems
-
Constitutional: Reports No Symptoms
EENT: Reports Other (b/l bleeding nose )
Respiratory: Reports No Symptoms
Cardiac: Reports No Symptoms
Abdomen/GI: Reports No Symptoms
: Reports No Symptoms
Musculoskeletal: Reports No Symptoms
Skin: Reports No Symptoms
Neurological: Reports No Symptoms
Endocrine: Reports No Symptoms
Hematologic/Lymphatic: Reports No Symptoms
Psych: Reports No Symptoms
Physical Exam
Vital Signs
Vital Signs
Pulse Resp BP Pulse Ox
88 26 158/106 98
03/14/24 12:30 03/14/24 12:30 03/14/24 12:34 03/14/24 12:30
Physical Exam
General: Appears in Distress
HEENT: Other (b/l active bleeding nose despite s/p post nasal packing )
Respiratory: Clear
Cardiac: S1/S2 and Regular Rhythm
Breast: Deferred by me
GI: Soft, Non Tender, Non Distended and Normal Bowel Sounds
Genito-urinary: Deferred by me
Musculoskeletal: No Edema
Skin: Other
Neuro: AO x 3
Psych: Anxious
Laboratory Results
-
03/14/24 12:06
Laboratory Results
PT 14.5 Sec (11.4-14.6) 03/14/24 12:06
INR 1.10 03/14/24 12:06
Total Bilirubin Cancelled 03/14/24 12:06
AST Cancelled 03/14/24 12:06
ALT Cancelled 03/14/24 12:06
Alkaline Phosphatase Cancelled 03/14/24 12:06
Data Reviewed
-
Lab Data: Labs Reviewed by me
Impression/Plan
-
VSS
03/14/24
10:05 03/14/24
12:34
Pulse 76
Blood pressure 180/107 158/106
Data
09/25/23 03/14/24
20:01 12:06
WBC 8.0
Hgb 16.3 20.3 H*
ASSESSMENT & PLAN
Pending Rx reconciliation
Intractable acute epistaxis
last dose of Eliquis is last night
SBP elevated due to stress
Stable HD state
Initial Hgb is 20
- Blood T& S
- Blood consent by ER AP
- Trend H & H
- stat K Centra @ ER
- IV prophylactic IV Unasyn
- NPO for OR - can resume Low cholesterol 2000 harish diet after clear by ENT s/p OR
- ENT urgently consulted
Systolic HTN due to stress
HX Benign HTN
- IV Ativan 1mg Q6h PRN
- cont. OP Meds s/p Pending Rx reconciliation
DMT2
- add ISS low
- Hold Glipizide for now
HLD on Atorvastatin
DVT Px SCD
Full code
IP TLM
[2024-03-14] MEDS: KCENTRA 100 UNIT IV (12:59)
[2024-03-14 14:35] LABS: Glucose - Point of Care 124 mg/dl (70-99)
[2024-03-14] MEDS: SUBLIMAZE 50 MCG IV ×2 (15:20→15:31)
[2024-03-14 16:40] LABS: Glucose - Point of Care 180 mg/dl (70-99)
[2024-03-14] MEDS: UNASYN IV ×2 (16:55→21:54)
[2024-03-14] MEDS: FLUSH (NSS) 2 FLUSH IV (16:57)
[2024-03-14] MEDS: DILAUDID 0.25 MG IV ×2 (17:47→21:54)
[2024-03-14] MEDS: LIPITOR 20 MG PO (17:47)
[2024-03-14 20:24] LABS: Hematocrit 54.3 % (39.0-52.0); Hemoglobin 19.1 g/dL (13.0-18.0)
[2024-03-14 20:40] LABS: ALT (SGPT) 37 U/L (0-50); AST (SGOT) 35 U/L (17-59); Albumin 4.4 g/dl (3.5-5.0); Alkaline Phosphatase 40 U/L (38-126); Blood Urea Nitrogen 23 mg/dl (9-20); Calcium 8.8 mg/dl (8.4-10.2); Carbon Dioxide 24 mmol/L (22-30); Chloride 101 mmol/L (98-107); Estimated Creatinine Clearance 88 ml/min; Glucose 321 mg/dl (70-99); Potassium 4.7 mmol/L (3.5-5.1); Sodium 139 mmol/L (135-145); Total Bilirubin 1.3 mg/dl (0.2-1.3); Total Protein 7.1 g/dl (6.3-8.2); eGFR > 60.00
[2024-03-14 21:41] LABS: Glucose - Point of Care 277 mg/dl (70-99)
[2024-03-15] MEDS: UNASYN IV ×4 (03:10→22:36)
[2024-03-15 03:20] VITALS: BP 149/90
[2024-03-15] MEDS: DILAUDID 0.25 MG IV (03:53)
--- NOTE | 2024-03-15 04:27 | PTCARENOTE ---
Pt w packing to R nare s/p nasal endoscopy, no leaking noted. Pain managed w PRN pain meds. VS WNL. Pt ambulatory. Care ongoing.
[2024-03-15 04:57] LABS: Hemoglobin 18.2 g/dL (13.0-18.0)
[2024-03-15 05:15] LABS: Blood Urea Nitrogen 21 mg/dl (9-20); Calcium 8.9 mg/dl (8.4-10.2); Carbon Dioxide 25 mmol/L (22-30); Chloride 102 mmol/L (98-107); Estimated Creatinine Clearance 97 ml/min; Glucose 209 mg/dl (70-99); Potassium 4.2 mmol/L (3.5-5.1); Sodium 138 mmol/L (135-145); eGFR > 60.00
[2024-03-15 07:00] VITALS: BP 178/112
[2024-03-15 07:50] LABS: Glucose - Point of Care 188 mg/dl (70-99)
[2024-03-15] MEDS: CARDIZEM CD 240 MG PO (08:33)
[2024-03-15] MEDS: CYMBALTA DELAYED RELEASE 30 MG PO (08:33)
[2024-03-15] MEDS: ROXICODONE 5 MG PO ×2 (08:55→13:05)
[2024-03-15] MEDS: GLUCOTROL 2.5 MG PO (09:45)
[2024-03-15] MEDS: FLUSH (NSS) 1 FLUSH IV (09:56)
[2024-03-15 10:10] VITALS: BMI 36.5
[2024-03-15 11:23] LABS: Glucose - Point of Care 207 mg/dl (70-99)
--- NOTE | 2024-03-15 11:52 | CM ---
Met with pt at bedside
Pt reports he lives alone in a 1 story home; 2 steps to enter
Independent, active, driving
DME - BiPap -[facility]
SNF/HH - denies past hx
Has ride home at discharge
PCP - Cesar Pitt
Pharm - [facility]
Plan - anticipate home no needs when medically ready
[2024-03-15 12:00] VITALS: BP 136/82
[2024-03-15 12:20] LABS: Hematocrit 49.4 % (39.0-52.0)
--- NOTE | 2024-03-15 12:51 | W.PN.UPDATE ---
Update Note
Progress Note Update
Pt without any further epistaxis
VSS
Packing in place on right
OC - dry
A/P Epistaxis
Controlled
would leave packing in place for 2- 3 days total
Underlying IVELISSE
Ok for small dose of Ambien to help sleep at night
Should have pulse ox monitoring at night, oxygen if needed
Prophylactic antibiotics
--- NOTE | 2024-03-15 13:03 | PTCARENOTE ---
continuous pulse oximetry placed at this time, reading 95% on Room Air. care ongoing.
--- NOTE | 2024-03-15 13:11 | W.PN.HOSP.TC ---
Today's Communication/Plan
-
see A/P
Assessment / Plan
Assessment / Plan
HPI: 68 yo M PMH chronic Eliquis for Prx AF; p/w bloody nose bleed from BL nares.
Of note, he was recently sick with cold symptom for 3 days. Nose bleed started after blowing his nose.
A/P:
# Acute epistaxis, exacerbated by Eliquis use
Stable HD state
Blood consent obtained by ER AP
s/p K Centra from ER
s/p OR endoscopy and cautery under anesthesia for nose bleed
ENT recc to keep packing in place for 2- 3 days total
Cont prophylactic IV Unasyn
# Elevated Hgb
Initial Hgb is 20, today at 17.0
Pt states that he take testosterone per his urologist
# Paroxysmal A fib
Cont MOLDER BENCH Cardizem
# DMT2
ISS low
resumed MOLDER BENCH Glipizide
# HLD on Atorvastatin
# Chronic insomnia on Ambien MOLDER BENCH
DVT Px: SCD
Full code
DW RN
Anticipated Discharge: 24 - 48 hours
Subjective/Interval History
-
Date of Service: March 15, 2024
Objective Data
-
Labs:
Laboratory Results
03/15/24 03/15/24
04:38 12:03
Hgb 18.2 H 17.0
Hct 52.0 49.4
Sodium 138
Potassium 4.2
Chloride 102
Carbon Dioxide 25
BUN 21 H
Creatinine 1.0
Glucose 209 H
Calcium 8.9
Vital Signs:
Vital Signs
Temp Pulse Resp BP Pulse Ox
36.7 C 95 18 136/82 94
03/15/24 12:00 03/15/24 12:00 03/15/24 12:00 03/15/24 12:00 03/15/24 12:00
I&O
03/14/24 03/15/24 03/16/24
06:59 06:59 06:59
Intake Total 1460 / 1460
Balance 1460 / 1460
Review of Systems
-
All other systems: Reviewed and negative
Physical Exam
-
General: Well Developed, Well Nourished, No Apparent Distress, Comfortable and Conversant; Negative Respiratory Distress
HEENT: Normocephalic, Atraumatic, Nose Appears Normal, Ears Appear Normal and Other (R nare packed ); Negative Oxygen
Respiratory: Clear to Auscultation and Non Labored Respirations; Negative Accessory Resp Muscle Use
Cardiac: Regular Rhythm and S1/S2
GI: Soft, Nontender, Nondistended and Normal Bowel Sounds
Skin: Warm and Dry
Neuro: Awake, Alert, Oriented and AO x 3
Psych: Calm and Intact Judgement/Insight
Data Reviewed
-
Labs: Labs Reviewed by me
[2024-03-15 16:00] VITALS: BP 128/78
[2024-03-15 16:47] LABS: Glucose - Point of Care 139 mg/dl (70-99)
[2024-03-15] MEDS: LIPITOR 20 MG PO (17:19)
[2024-03-15] MEDS: ROXICODONE 10 MG PO (17:23)
[2024-03-15 19:11] VITALS: BP 142/76
[2024-03-15 21:25] LABS: Glucose - Point of Care 173 mg/dl (70-99)
[2024-03-15] MEDS: AMBIEN 5 MG PO (22:36)
[2024-03-15 23:14] VITALS: BP 118/63
[2024-03-16] MEDS: UNASYN IV ×2 (03:38→10:34)
[2024-03-16] MEDS: FLUSH (NSS) 2 FLUSH IV (03:38)
[2024-03-16 03:43] VITALS: BP 146/83
[2024-03-16 06:00] VITALS: BMI 36.5
[2024-03-16 07:00] VITALS: BP 128/81
[2024-03-16 07:23] LABS: Hematocrit 51.1 % (39.0-52.0); Hemoglobin 17.3 g/dL (13.0-18.0); Mean Corp Hgb Conc. 33.9 g/dL (33.0-37.0); Mean Corpuscular Hgb 31.9 pg (27.0-31.0); Mean Corpuscular Volume 94.1 fL (80.0-94.0); Mean Platelet Volume 9.7 fL (7.4-10.4); Platelet Count 167 10^3/uL (130-400); Red Blood Cell Count 5.43 10^6/uL (4.70-6.10); Red Cell Dist. Width 13.1 % (11.5-14.5); White Blood Cell Count 9.5 10^3/uL (4.8-10.8)
[2024-03-16 07:26] LABS: Blood Urea Nitrogen 19 mg/dl (9-20); Calcium 8.6 mg/dl (8.4-10.2); Carbon Dioxide 28 mmol/L (22-30); Chloride 100 mmol/L (98-107); Estimated Creatinine Clearance 88 ml/min; Glucose 157 mg/dl (70-99); Sodium 138 mmol/L (135-145); eGFR > 60.00
[2024-03-16 07:49] LABS: Glucose - Point of Care 153 mg/dl (70-99)
[2024-03-16] MEDS: GLUCOTROL PO ×2 (08:39→08:42)
[2024-03-16] MEDS: ROXICODONE 10 MG PO ×2 (08:39→13:29)
[2024-03-16] MEDS: CYMBALTA DELAYED RELEASE 30 MG PO (08:40)
[2024-03-16] MEDS: CARDIZEM CD 240 MG PO (08:40)
[2024-03-16 11:28] LABS: Glucose - Point of Care 189 mg/dl (70-99)
[2024-03-16] MEDS: GLUCOTROL 2.5 MG PO (11:30)
--- NOTE | 2024-03-16 12:21 | W.PN.HOSP.TC ---
Addendum entered and electronically signed by Carmen Aguillon MD 03/16/24 14:17:
Total DC time 40 minutes
discussed with ENT, cleared for discharge today
R nostril packing to be removed tomorrow in the office.
Resume Eliquis in 2 days.
Continue prophylactic antibiotic with Augmentin, 5 days course sent to his pharmacy
Original Note:
Today's Communication/Plan
-
see A/P
Assessment / Plan
Assessment / Plan
HPI: 68 yo M PMH chronic Eliquis for Prx AF; p/w bloody nose bleed from BL nares.
Of note, he was recently sick with cold symptom for 3 days. Nose bleed started after blowing his nose.
A/P:
# Acute epistaxis, exacerbated by Eliquis use
Stable HD state
Blood consent obtained by ER AP
s/p K Centra from ER
s/p OR endoscopy and cautery under anesthesia for nose bleed
ENT recc to keep packing in place for 2- 3 days total
Cont prophylactic IV Unasyn
# Elevated Hgb
Initial Hgb is 20, today at 17.3
Pt states that he take testosterone per his urologist
# Paroxysmal A fib
Cont SENIOR PRODUCT MANAGER Cardizem
# DMT2
ISS low
resumed SENIOR PRODUCT MANAGER Glipizide
# HLD on Atorvastatin
# Chronic insomnia on Ambien SENIOR PRODUCT MANAGER
DVT Px: SCD
Full code
DW RN
DW ENT. Pending reply wrt packing removal and dispo
Anticipated Discharge: Within 24 hours
Subjective/Interval History
-
Date of Service: March 16, 2024
Objective Data
-
Labs:
Laboratory Results
03/16/24
05:28
WBC 9.5
Hgb 17.3
Hct 51.1
Plt Count 167
Sodium 138
Potassium 4.0
Chloride 100
Carbon Dioxide 28
BUN 19
Creatinine 1.1
Glucose 157 H
Calcium 8.6
Vital Signs:
Vital Signs
Temp Pulse Resp BP Pulse Ox
36.8 C 61 20 128/81 96
03/16/24 11:10 03/16/24 11:10 03/16/24 11:10 03/16/24 08:40 03/16/24 11:10
I&O
03/15/24 03/16/24 03/17/24
06:59 06:59 06:59
Intake Total 1460 / 1460 900 / 900
Balance 1460 / 1460 900 / 900
Review of Systems
-
All other systems: Reviewed and negative
Physical Exam
-
General: Well Developed, Well Nourished, No Apparent Distress, Comfortable and Conversant; Negative Respiratory Distress
HEENT: Normocephalic, Atraumatic, Nose Appears Normal, Ears Appear Normal and Other (R nare packed ); Negative Oxygen
Respiratory: Clear to Auscultation and Non Labored Respirations; Negative Accessory Resp Muscle Use
Cardiac: Regular Rhythm and S1/S2
GI: Soft, Nontender, Nondistended and Normal Bowel Sounds
Skin: Warm and Dry
Neuro: Awake, Alert, Oriented and AO x 3
Psych: Calm and Intact Judgement/Insight
Data Reviewed
-
Labs: Labs Reviewed by me
--- NOTE | 2024-03-16 12:53 | W.PN.UPDATE ---
Update Note
Progress Note Update
follow up epistaxis
no bleeding
VSS
pack in place on right
OC - dry
A/p Epistaxis
ok to d/c today
d/c on po antibx such as Amox
follow up in office tomorrow morning for packing removal
--- NOTE | 2024-03-16 14:08 | W.DCSUMMARY ---
Discharge Summary
Discharge Data
Date of Admission: 03/14/24
Date of Discharge: 03/16/24
-
Pending Results: No
Hospital Course
Principal Diagnosis:
Acute epistaxis, exacerbated by Eliquis use
Chronic Diagnoses:�
Elevated hemoglobin, patient states that he takes testosterone per his urologist outpatient.
Paroxysmal atrial fibrillation on Eliquis prior to admission
[id number] diabetes
Hyperlipidemia
Chronic insomnia on Ambien
Consultations:�
ENT
Procedures:�
OR endoscopy and cautery under anesthesia for nose bleed
Clinical course:�
This is a 68-year-old male with past medical history as stated above, who presented with nose bleed.
Of note, he was recently sick with cold symptom and admitted to blowing his nose forcefully. His nose bleed started after blowing his nose.
Problem 1:
Acute epistaxis, exacerbated by Eliquis use.
He has been hemodynamically stable during his hospital stay.
He received Kcentra from the emergency room, and underwent endoscopy and cauterization in the OR for his nosebleed.
His right nose was packed and he has been informed to follow-up with ENT for packing removal the following day after discharge.
He can resume his prior to admission Eliquis in 2 days after discharge.
He received prophylactic Unasyn while in the hospital and was discharged with prophylactic Augmentin for 5 more days.
As for the rest of his medical problems, they were stable during his hospital stay.
Discharge Plan
-
Patient Disposition: Home (Routine Discharge)
Discharge Diagnosis/Procedures: Acute epistaxis, exacerbated by Eliquis use, status post OR endoscopy and cautery
Condition: Good
Diet: As tolerated
Activity: As tolerated
Driving Restrictions: As prior to admission
Activity Restrictions/Additional Instructions:
follow up in ENT office 03/17/24 for packing removal
Referrals:
Cesar Pitt MD [Family Provider] - in less than 1 week
Additional Discharge Medication Instructions: Hold Eliquis until 03/18/2024, resume on 03/18/2024
Continue prophylactic Augmentin for 5 days
Prescriptions:
New
amoxicillin-pot clavulanate 875-125 mg tablet
1 tab PO Q12H 5 Days Qty: 10 0RF
Continued
diltiazem HCl 240 MG capsule,extended release 24hr
240 mg PO DAILY
cyanocobalamin (vitamin B-12) 1,000 MCG tablet
1,000 mcg PO DAILY
duloxetine 30 MG capsule,delayed release(DR/EC)
30 mg PO DAILY
atorvastatin 20 mg Tablet
20 mg PO QPM
pyridoxine (vitamin B6) [Vitamin B-6] 100 mg Tablet
100 mg PO DAILY
oxycodone-acetaminophen 7.5-325 mg tablet
1 tab PO Q4HPRN PRN (Reason: moderate pain)
Patient Comments:
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
glipizide 5 mg Tablet
2.5 mg PO DAILY
Held
Eliquis 5 MG tablet
5 mg PO BID
Hold Instructions: Resume on 03/18/24.
Discharge Orders:
Discharge Patient (As Directed); Ordered 03/16/24
Ordered By: Carmen Aguillon
Discharge Date and Time
Print Language: TAJIK
== END 2024-03-16 14:08 | disposition home or self-care (01) | DRG 151 ==
LOC: 2 SOUTH 15:10
PROVIDERS: Physician Assistant Medical; ADMITTING PHYSICIAN Internal Medicine; ATTENDING PHYSICIAN Internal Medicine; CONSULT PHYSICIAN Otolaryngology; EMERGENCY PHYSICIAN Emergency Medicine; FAMILY PHYSICIAN Internal Medicine
PROC: 093K7ZZ Control Bleeding in Nasal Mucosa and Soft Tissue, Via Natural or Artificial Opening (ICD-10-PCS; 2024-03-14)
DX: R04.0 Epistaxis (principal); D68.32 Hemorrhagic disorder due to extrinsic circulating anticoagulants; E11.9 Type 2 diabetes mellitus without complications; I48.0 Paroxysmal atrial fibrillation; Z79.01 Long term (current) use of anticoagulants
CPT/HCPCS: 30905; 80048; 80053; 82962; 85014; 85018; 85027; 85610; 86850; 86900; 86901; 96374; 99291; 99292; J7168

== ENCOUNTER → 2024-04-21 13:11 | Outpatient (REF) | payer MEDICARE, SELFPAY | LOC: RAD 13:11 | PROVIDERS: ATTENDING PHYSICIAN Internal Medicine Critical Care Medicine | DX: J98.4 Other disorders of lung (principal) | CPT/HCPCS: 71046 ==

== ENCOUNTER → 2024-06-17 12:42 | Outpatient (REF) | payer MEDICARE, SELFPAY | LOC: RCS 12:42 | PROVIDERS: ATTENDING PHYSICIAN Internal Medicine Cardiovascular Disease; FAMILY PHYSICIAN Internal Medicine | DX: I48.0 Paroxysmal atrial fibrillation (principal); I77.810 Thoracic aortic ectasia | CPT/HCPCS: 93306 ==

== ENCOUNTER → 2024-06-17 13:04 | Outpatient (REF) | payer MEDICARE, SELFPAY | LOC: DHSLP 13:04 | PROVIDERS: ATTENDING PHYSICIAN Internal Medicine Critical Care Medicine; FAMILY PHYSICIAN Internal Medicine | DX: G47.33 Obstructive sleep apnea (adult) (pediatric) (principal) | CPT/HCPCS: 95811 ==

== ENCOUNTER → 2024-09-08 14:02 | Outpatient (REF) | payer MEDICARE, SELFPAY ==
[2024-09-08 14:48] LABS: % Basophils 0.3 % (0-2); % Eosinophils 1.4 % (0-6); % Immature Granulocytes 0.3 % (0-0.5); % Lymphocytes 24.9 % (20.5-51.1); % Monocytes 9.4 % (1.7-9.3); % Neutrophils 63.7 % (42.2-75.2); Absolute Eosinophils 0.1 10^3/uL (0-0.7); Absolute Lymphocytes 1.6 10^3/uL (1.2-3.4); Absolute Monocytes 0.6 10^3/uL (0.1-0.6); Hematocrit 49.5 % (39.0-52.0); Mean Corp Hgb Conc. 34.3 g/dL (33.0-37.0); Mean Corpuscular Hgb 31.8 pg (27.0-31.0); Mean Corpuscular Volume 92.5 fL (80.0-94.0); Mean Platelet Volume 9.3 fL (7.4-10.4); Nucleated Red Blood Cells % 0 % (-); Platelet Count 205 10^3/uL (130-400); Red Blood Cell Count 5.35 10^6/uL (4.70-6.10); Red Cell Dist. Width 12.7 % (11.5-14.5); White Blood Cell Count 6.3 10^3/uL (4.8-10.8)
== END ==
LOC: REG 14:02
PROVIDERS: ATTENDING PHYSICIAN Internal Medicine
DX: D75.1 Secondary polycythemia (principal)
CPT/HCPCS: 36415; 85025

== ENCOUNTER 2024-10-01 09:39 | Outpatient (RCR) | payer MEDICARE, SELFPAY ==
[2024-10-01 09:59] VITALS: BP 124/74
[2024-10-01 10:02] LABS: Hematocrit 47.6 % (39.0-52.0); Hemoglobin 17.1 g/dL (13.0-18.0)
[2024-10-01 11:07] VITALS: BP 103/78
[2024-10-01 11:20] VITALS: BP 131/81
[2024-10-01 11:25] VITALS: BP 127/78
== END 2024-10-04 08:24 | disposition home or self-care (01) ==
LOC: OID 09:39
PROVIDERS: ATTENDING PHYSICIAN Nurse Practitioner Family
DX: D45 Polycythemia vera (principal); Z79.01 Long term (current) use of anticoagulants
CPT/HCPCS: 85014; 85018; 99195

== ENCOUNTER → 2024-10-22 11:15 | Outpatient (REF) | payer MEDICARE, SELFPAY | LOC: RAD 11:15 | PROVIDERS: ATTENDING PHYSICIAN Internal Medicine | DX: M25.561 Pain in right knee (principal) | CPT/HCPCS: 73564 ==

== ENCOUNTER 2024-11-14 10:31 | Emergency (ER) | payer MEDICARE, SELFPAY ==
[2024-11-14] VITALS (11 sets, daily range): BP systolic 102–150; BP diastolic 75–88; BMI 36.8
[2024-11-14 11:33] LABS: Hematocrit 51.8 % (39.0-52.0); Hemoglobin 18.1 g/dL (13.0-18.0); Mean Corp Hgb Conc. 34.9 g/dL (33.0-37.0); Mean Corpuscular Volume 92.2 fL (80.0-94.0); Nucleated Red Blood Cells % 0 % (-); Platelet Count 192 10^3/uL (130-400); Red Cell Dist. Width 12.6 % (11.5-14.5)
[2024-11-14 11:46] LABS: ALT (SGPT) 39 U/L (0-50); AST (SGOT) 31 U/L (17-59); Albumin 4.6 g/dl (3.5-5.0); Alkaline Phosphatase 53 U/L (38-126); Blood Urea Nitrogen 27 mg/dl (9-20); Calcium 10.0 mg/dl (8.4-10.2); Carbon Dioxide 26 mmol/L (22-30); Chloride 107 mmol/L (98-107); Estimated Creatinine Clearance 80 ml/min; Glucose 147 mg/dl (70-99); Potassium 4.3 mmol/L (3.5-5.1); Sodium 140 mmol/L (135-145); Total Protein 7.6 g/dl (6.3-8.2); eGFR > 60.00
[2024-11-14] MEDS: CARDIZEM 25 MG IV (11:54)
[2024-11-14] MEDS: CARDIZEM 125 IV (11:54)
[2024-11-14] MEDS: NSS 1000 IV (11:55)
[2024-11-14 11:59] LABS: Magnesium 1.8 mg/dl (1.6-2.3)
[2024-11-14] MEDS: MAGNESIUM SULFATE 50 IV (12:51)
--- NOTE | 2024-11-14 14:57 | ED.GENMED ---
History of Present Illness
<Faizan Flores MD - Last Filed: 11/14/24 14:58>
General
Chief Complaint: Chest Pain
Time Seen by Provider: 11/14/24 11:03
<Trip Lockhart PA-C - Last Filed: 11/14/24 15:35>
History of Present Illness
History of Present Illness:
69-year-old male presents to the emergency department for of shortness of breath with exertion, dizziness, and severe fatigue for the past several days. He has a hard time breathing even at rest and notes that his resting pulse ox was below 95%
which concerned him that this could be a lung pathology. Denies any recent illnesses or fevers. Has been compliant with all of his home medications.
Past History
<Faizan Flores MD - Last Filed: 11/14/24 14:58>
Past History
ED Past Medical History: Arrthythmia (afib), HTN, Hypercholesterolemia, Other (Chronic cervical and lumbar disc disease) and Other (Obstructive sleep apnea, kidney stones, ulcerative colitis, peptic ulcer disease, pancreatitis); Negative Asthma, CAD
or Cancer
ED Past Surgical History: Cardiac (cardiac link), Cholecystectomy, Orthopedic and Other (Cervical laminectomy,); Negative Appendectomy, Bowel resection or Brain
Social History
Tobacco: Non-smoker
Alcohol: None
Drug: None
Personal: Single
Living: alone
Employment: Disabled
Family History
Family History: Hypertension, Early CAD and CAD; Negative Diabetes, Asthma or Cancer
Review of Systems
<Trip Lockhart PA-C - Last Filed: 11/14/24 15:35>
Review of Systems
Allergies reviewed?: Yes
All Other Systems: ROS reviewed and negative except as documented in HPI and ROS
Phy Exam
<Trip Lockhart PA-C - Last Filed: 11/14/24 15:35>
Physical Exam
Physical Exam:
GEN: Well appearing, NAD, WDWN
HEENT: Oral mucosa moist, no scleral icterus
Cardiac: Tachycardic and irregular, no murmur
Lung: No respiratory distress, no tachypnea, lungs clear to auscultation bilaterally
MSK: No gross deformity or injuries, no lower extremity edema
Skin: Good color, no pallor or jaundice, no rashes
Neuro: AO x3, moves all extremities freely
Psych: Calm, cooperative
Scores
<Trip Lockhart PA-C - Last Filed: 11/14/24 15:35>
Heart Score for Chest Pain Patients
STEMI patient?: No
History: Slightly or Non-Suspicious
ECG: Normal
Age: >/= 65 years
Risk Factors: >/= 3 Risk Factors or History of CAD
Troponin: </= Normal Limit
Heart Score for Chest Pain Patients: 4
Heart Score Risk: 20.3% MACE over next 6 weeks
Course
<Faizan Flores MD - Last Filed: 11/14/24 14:58>
Orders/Labs/Results
Orders:
Orders
11/14/24 10:33
EKG [Electrocardiogram (*1)] Urgent
Reason for Study: Chest Pain
EKG- Treatment ONCE
11/14/24 11:22
Complete Blood Count/With Diff Urgent
Comprehensive Metabolic Panel Urgent
Magnesium Urgent
Comment: ADD ON
11/14/24 11:45
Add On- LAB Urgent
Tests Added?: magnesium
0.9% Sodium Chloride 1000 ml [Nss] 1,000 ml IV BOLUS
Diltiazem 125 mg/125 ml Nss [Cardizem] 125 mg in 125 ml IV PER PROTOCOL
Initial dose in mg/hr, then titrate:: 5
Titrate to keep:: Heart rate 80-100 bpm
Titrate by mg/hr:: 5 mg/hr
Frequency of titrations (minutes):: 15
Maximum dose in mg/hr:: 15
Diltiazem HCl [Cardizem] 25 mg IV NOW STA
11/14/24 12:39
Magnesium Sulfate 2 Gram/50 ml [Magnesium Sulfate] 2 gram in 50 ml IV NOW
11/14/24 14:15
Propofol [Diprivan] 20 ml .ROUTE .STK-MED
Abnormal Lab Results
11/14/24
11:22
Hgb 18.1 H g/dL
(13.0-18.0)
MCH 32.2 H pg
(27.0-31.0)
Absolute Monos (auto) 0.8 H 10^3/uL
(0.1-0.6)
Monocytes % 10.2 H %
(1.7-9.3)
BUN 27 H mg/dl
(9-20)
Glucose 147 H mg/dl
(70-99)
11/14/24 11:22
11/14/24 11:22
Vital Signs
Initial and Last Documented VS:
Initial Vital Signs
Temp Pulse Resp BP Pulse Ox
97.6 F 70 16 102/79 98
11/14/24 10:34 11/14/24 10:34 11/14/24 10:34 11/14/24 10:34 11/14/24 10:34
Last Documented Vital Signs
Temp Pulse Resp BP Pulse Ox
98 F 74 20 135/85 99
11/14/24 15:04 11/14/24 15:04 11/14/24 15:04 11/14/24 15:04 11/14/24 15:04
<Trip Lockhart PA-C - Last Filed: 11/14/24 15:35>
Orders/Labs/Results
Orders:
Orders
11/14/24 10:33
EKG [Electrocardiogram (*1)] Urgent
Reason for Study: Chest Pain
EKG- Treatment ONCE
11/14/24 11:22
Complete Blood Count/With Diff Urgent
Comprehensive Metabolic Panel Urgent
Magnesium Urgent
Comment: ADD ON
11/14/24 11:45
Add On- LAB Urgent
Tests Added?: magnesium
0.9% Sodium Chloride 1000 ml [Nss] 1,000 ml IV BOLUS
Diltiazem 125 mg/125 ml Nss [Cardizem] 125 mg in 125 ml IV PER PROTOCOL
Initial dose in mg/hr, then titrate:: 5
Titrate to keep:: Heart rate 80-100 bpm
Titrate by mg/hr:: 5 mg/hr
Frequency of titrations (minutes):: 15
Maximum dose in mg/hr:: 15
Diltiazem HCl [Cardizem] 25 mg IV NOW STA
11/14/24 12:39
Magnesium Sulfate 2 Gram/50 ml [Magnesium Sulfate] 2 gram in 50 ml IV NOW
11/14/24 14:15
Propofol [Diprivan] 20 ml .ROUTE .STK-MED
Abnormal Lab Results
11/14/24
11:22
Hgb 18.1 H g/dL
(13.0-18.0)
MCH 32.2 H pg
(27.0-31.0)
Absolute Monos (auto) 0.8 H 10^3/uL
(0.1-0.6)
Monocytes % 10.2 H %
(1.7-9.3)
BUN 27 H mg/dl
(9-20)
Glucose 147 H mg/dl
(70-99)
11/14/24 11:22
11/14/24 11:22
Vital Signs
Initial and Last Documented VS:
Initial Vital Signs
Temp Pulse Resp BP Pulse Ox
97.6 F 70 16 102/79 98
11/14/24 10:34 11/14/24 10:34 11/14/24 10:34 11/14/24 10:34 11/14/24 10:34
Last Documented Vital Signs
Temp Pulse Resp BP Pulse Ox
98 F 74 20 135/85 99
11/14/24 15:04 11/14/24 15:04 11/14/24 15:04 11/14/24 15:04 11/14/24 15:04
Procedures
<Faizan Flores MD - Last Filed: 11/14/24 14:58>
Moderate Sedation
Moderate Sedation Start Time(when first medication is given): 14:24
Moderate Sedation Procedure End Time: 14:34
<Trip Lockhart PA-C - Last Filed: 11/14/24 15:35>
Cardioversion
Indication:: Afib
Performed by:: Trip Lockhart PA-C, Bradley Flores MD
Synchronized?: Yes
Energy Used: 150 joules
Number of attempts: 1
Successful?: Yes
ASA Risk Score: Class III
Any reaction or bad outcome to prior sedation/anesthesia?: No history of a reaction
Sedation level to be attained: moderate
Chart and allergies reviewed: Yes
Patient reassessed prior to sedation: Yes
Time out completed at (validating right patient & procedure): 14:24
History of difficult intubation: No
Airway free of obstruction: Yes
Patient has a gag reflex: Yes
Patient is able to open mouth: Yes
Patient has no dentures: Yes
Patient has no loose teeth: No
Medication administered by Provider during Moderate Sedation: IV Propofol (mg)
Total dose administered: 60
Time drug administered: 14:24
Start Time: 14:24
Stop Time: 14:34
<Trip Lockhart PA-C - Last Filed: 11/14/24 15:35>
MDM/Problems Addressed
MDM/Problems Addressed:
Patient presented with rapid atrial fibrillation and exertional dyspnea as a result. He was initially started on IV rate control with good results however remained in A-fib, given that he is adequately anticoagulated the decision was made to
proceed with electrical cardioversion. Cardioversion was uncomplicated and successful with 1 attempt. He remained in normal sinus rhythm at time of discharge, recommend outpatient cardiology follow-up however no medication changes are warranted at
this time
<Faizan Flores MD - Last Filed: 11/14/24 14:58>
*Pulse Oximetry
SaO2: 95
<Trip Lockhart PA-C - Last Filed: 11/14/24 15:35>
*Pulse Oximetry
Patient hypoxic: no
*Critical Care Note
Total Time (30-74mins, 75-104mins- exclusive of procedures): Not Applicable
ED Attending Note
<Faizan Flores MD - Last Filed: 11/14/24 14:58>
ED Attending Note
Patient seen and examined by attending physician: Yes
ED Attending Note:
I have seen and evaluated the patient with a [id number] encounter. I have spoken to the advance practicer provider and involved in the medical history, the physical exam, medical decision making.
Evaluation and management service: agree unless noted differently below.
Results interpretation: agree unless noted differently below.
Focused HPI: 69-year-old male presents with chest pain for the past few days. Found to be in A-fib with RVR. He is on Eliquis and compliant.
Physical exam: Awake alert no distress. Irregularly irregular rhythm with tachycardia. No edema.
Medical Decision Makin-year-old male presents with A-fib with RVR. Given diltiazem but still tachycardic ultimately decision made to cardiovert. Cardioverted as documented in procedure note. Will observe post cardioversion and plan for
discharge with cardiology referral.
-
Portions of this chart may have been created with voice recognition software.� Occasional wrong word or��sound alike� substitutions may have occurred due to the inherent limitations of voice recognition software.
Discharge Plan
Departure
Patient Disposition: Home (Routine Discharge)
Date of Disposition: 11/14/24
Time of Disposition: 15:29
Patient with high blood pressure during this ER visit?: No
Discharge Problem:
Atrial fibrillation with RVR
Instructions: Atrial fibrillation - Discharge instructions, Sedation for procedures in adults - ED discharge instructions
Prescriptions:
No Action
diltiazem HCl 240 MG capsule,extended release 24hr
240 mg PO DAILY
cyanocobalamin (vitamin B-12) 1,000 MCG tablet
1,000 mcg PO DAILY
duloxetine 30 MG capsule,delayed release(DR/EC)
30 mg PO DAILY
Eliquis 5 MG tablet
5 mg PO BID
atorvastatin 20 mg Tablet
20 mg PO QPM
pyridoxine (vitamin B6) [Vitamin B-6] 100 mg Tablet
100 mg PO DAILY
oxycodone-acetaminophen 7.5-325 mg tablet
1 tab PO Q4HPRN PRN (Reason: moderate pain)
Patient Comments:
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
glipizide 5 mg Tablet
2.5 mg PO DAILY
coenzyme Q10 [Co Q-10] 10 mg Capsule
30 mg PO DAILY
cholecalciferol (vitamin D3) [Vitamin D3] 10 mcg (400 unit) Capsule
10 mcg PO DAILY
red yeast rice 600 mg Capsule
1,200 mg PO DAILY
alpha lipoic acid 100 mg Capsule
100 mg PO DAILY
Referrals:
Cesar Pitt MD [Family Provider, Internal Medicine]
Interventions
Interventions:
*Risk Screen - Suicide Last Done: 11/14/24 10:34
*General Assessment Last Done: 11/14/24 11:17
*Neglect/Abuse Screening Last Done: 11/14/24 10:34
*ED- Fall Risk Assessment Last Done: 11/14/24 11:17
*ED COVID-19 Vaccine History Last Done: 11/14/24 11:17
ED- Cardiac Assessment Last Done: 11/14/24 11:17
Discharge Date and Time
Print Language: MACEDONIAN
== END 2024-11-14 15:45 | disposition home or self-care (01) ==
LOC: EMR 10:31
PROVIDERS: EMERGENCY PHYSICIAN Emergency Medicine; FAMILY PHYSICIAN Internal Medicine
DX: I48.91 Unspecified atrial fibrillation (principal); E78.00 Pure hypercholesterolemia, unspecified; G47.33 Obstructive sleep apnea (adult) (pediatric); I10 Essential (primary) hypertension; I25.10 Atherosclerotic heart disease of native coronary artery without angina pectoris; Z79.01 Long term (current) use of anticoagulants; Z87.11 Personal history of peptic ulcer disease; Z90.49 Acquired absence of other specified parts of digestive tract
CPT/HCPCS: 92960; 99152; 96374; 96375; 96361; 99285; 80053; 83735; 85025; 93005

== ENCOUNTER → 2024-11-16 14:29 | Outpatient (REF) | payer MEDICARE, SELFPAY | LOC: RAD 14:29 | PROVIDERS: ATTENDING PHYSICIAN Nurse Practitioner; FAMILY PHYSICIAN Internal Medicine | DX: R06.02 Shortness of breath (principal) | CPT/HCPCS: 71046 ==

== ENCOUNTER → 2024-11-26 10:43 | Outpatient (REF) | payer MEDICARE, SELFPAY ==
[2024-11-26 11:45] LABS: Troponin I < 0.012 ng/ml
== END ==
LOC: REG 10:43
PROVIDERS: ATTENDING PHYSICIAN Internal Medicine Cardiovascular Disease; FAMILY PHYSICIAN Internal Medicine
DX: I48.0 Paroxysmal atrial fibrillation (principal); R06.02 Shortness of breath; Z86.79 Personal history of other diseases of the circulatory system; J98.4 Other disorders of lung; G47.33 Obstructive sleep apnea (adult) (pediatric); R07.89 Other chest pain
CPT/HCPCS: 36415; 83880; 84484

== ENCOUNTER 2024-12-23 13:52 | Outpatient (RCR) | payer MEDICARE, SELFPAY ==
[2024-12-23 14:22] VITALS: BP 160/87
[2024-12-23 14:55] VITALS: BP 155/88
[2024-12-23 15:00] VITALS: BP 158/99
== END 2024-12-24 09:51 | disposition home or self-care (01) ==
LOC: OID 13:52
PROVIDERS: ATTENDING PHYSICIAN Nurse Practitioner Family
DX: D45 Polycythemia vera (principal)
CPT/HCPCS: 99195

== ENCOUNTER 2025-03-11 09:55 | Emergency (ER) | payer MEDICARE, SELFPAY ==
[2025-03-11 10:00] VITALS: BP 170/114
--- NOTE | 2025-03-11 10:22 | ED.GENMED ---
History of Present Illness
General
Chief Complaint: Chest Pain
Source: patient
Exam Limitations: none
Time Seen by Provider: 03/11/25 10:22
Nursing documentation reviewed up to this point in time: agreed with
History of Present Illness
History of Present Illness:
Patient is a 69-year-old male with past medical history of paroxysmal A-fib on Eliquis paroxysmal SVT previous implantable loop monitor 2020 CHF hypertension sleep apnea on BiPAP, polycythemia vera(does get phlebotomy every 6 weeks and is due next
week presents to the ER for evaluation. Patient has had chest tightness intermittently for the pastseveral weeks however this has been constant for the past 2 days. He does feel short of breath with this. He has multiple other complaints. He
has had decreased appetite increased weight gain, headache chills fatigue dizziness. He reports symptoms are not necessarily new and he has had them again for the past several weeks. He denies any recent illness fever or chills. He complains of
an irritated sensation in his throat (for months ) feels like it is closing up at times.
Past History
Past History
ED Past Medical History: Arrthythmia (afib), HTN, Hypercholesterolemia, Other (Chronic cervical and lumbar disc disease) and Other (Obstructive sleep apnea, kidney stones, ulcerative colitis, peptic ulcer disease, pancreatitis); Negative Asthma, CAD
or Cancer
ED Past Surgical History: Cardiac (cardiac link), Cholecystectomy, Orthopedic and Other (Cervical laminectomy,); Negative Appendectomy, Bowel resection or Brain
Social History
Tobacco: Non-smoker
Alcohol: None
Drug: None
Personal: Single
Living: alone
Employment: Disabled
Family History
Family History: Hypertension, Early CAD and CAD; Negative Diabetes, Asthma or Cancer
Phy Exam
General Physical Exam
General Presentation: no apparent distress
General age: appears stated age
General Skin: warm and dry
General Habitus: obese
General Mental: alert
General Hydration: appears well hydrated
Cardiovascular Exam
Cardiovascular Exam: regular rate/rhythm, no murmur and normal peripheral pulses
Pulmonary Exam
Pulmonary Exam: lungs clear and no respiratory distress
Neurological Exam
Neurological Exam: alert and oriented x3
Musculoskeletal Exam
Musculoskeletal Exam: full ROM
Skin Exam
Skin Exam: normal color and warm/dry
Psychiatric Exam
Psychiatric Exam: normal mood/affect
Scores
Heart Score for Chest Pain Patients
STEMI patient?: Not applicable
Course
Orders/Labs/Results
Orders:
Orders
03/11/25 09:57
EKG [Electrocardiogram (*1)] Urgent
Reason for Study: Chest Pain
EKG- Treatment ONCE
03/11/25 10:34
CXR2 [CR Chest - 2 Views ] Urgent
Comment:
Reason For Exam: shortness of breath
03/11/25 10:37
Complete Blood Count/With Diff Urgent
Comprehensive Metabolic Panel Urgent
Magnesium Urgent
NT-proBNP Urgent
PTT Urgent
Prothrombin Time Urgent
Troponin I Urgent
03/11/25 11:47
Add On- LAB Urgent
Tests Added?: Carboxyhemoglobin
03/11/25 12:26
Carboxyhemoglobin Urgent
Comment: ADD ON
Abnormal Lab Results
03/11/25
10:37
Hgb 18.4 H g/dL
(13.0-18.0)
Hct 53.1 H %
(39.0-52.0)
MCH 31.1 H pg
(27.0-31.0)
Absolute Monos (auto) 0.7 H 10^3/uL
(0.1-0.6)
Lymphocytes % 18.8 L %
(20.5-51.1)
Carbon Dioxide 32 H mmol/L
(22-30)
BUN 21 H mg/dl
(9-20)
Glucose 201 H mg/dl
(70-99)
03/11/25 10:37
03/11/25 10:37
Vital Signs
Initial and Last Documented VS:
Initial Vital Signs
Temp Pulse Resp BP Pulse Ox
98.1 F 86 16 170/114 98
03/11/25 10:00 03/11/25 10:00 03/11/25 10:00 03/11/25 10:00 03/11/25 10:00
Last Documented Vital Signs
Temp Pulse Resp BP Pulse Ox
98.6 F 71 20 158/99 95
03/11/25 10:38 03/11/25 12:00 03/11/25 12:00 03/11/25 11:47 03/11/25 12:00
MDM/Problems Addressed
Differential Diagnosis Includes:
Not limited to ACS, less likely PE as patient is medicated on Eliquis has not skipped a dose
MDM/Problems Addressed:
As documented patient is a 69-year-old male with multiple complaints including chest pain shortness of breath dizziness headache decreased appetite. He has irritation in his throat describes this as feeling as though his throat is closing up at
times. He presents awake alert in no acute distress no acute distress. lungs are clear not hypoxic nontachypneic, no difficulty swallowing or tolerating secretions. He is afebrile his white count is normal ,hemoglobin is elevated 18.4 however
patient has polycythemia vera due for phlebotomy next week . .normal platelets patient's renal function .his troponin and BNP are negative. His x-ray is normal. No acute findings on EKG.
No acute cause for patient's symptoms however patient is very well-appearing . Patient is on Eliquis and has not skipped a dose. Low suspicion for PE. No clear cause of patient's symptoms however will place on chest pain hotline as well as refer
to ENT possible GI for evaluation of chronic issues in his throat though. he is in no acute distress here in the ER.
Pt mentioned being tested for carbon oxide poisoning though less likely will still check level and plan for discharge home if everything is negative.
Chronic conditions affecting care:
Polycythemia vera, A-fib on Eliquis CHF hypertension
*Radiology
Radiology exam reviewed: radiology read reviewed
*Pulse Oximetry
SaO2: 98
Oxygen Mode of Delivery: Room air
Patient hypoxic: no
*EKG
Interpreted by ED Provider?: Yes
Interpretation: normal
Heart Rate: 84
Rhythm: sinus
Ischemia: no ischemia
*Critical Care Note
Total Time (30-74mins, 75-104mins- exclusive of procedures): Not Applicable
ED Attending Note
-
Portions of this chart may have been created with voice recognition software.� Occasional wrong word or��sound alike� substitutions may have occurred due to the inherent limitations of voice recognition software.
Discharge Plan
Departure
Patient Disposition: Home (Routine Discharge)
Date of Disposition: 03/11/25
Time of Disposition: 12:58
Patient with high blood pressure during this ER visit?: Yes
Condition: Fair
Covid-19: Not Applicable
Discharge Problem:
Chest pain
Instructions: Chest Pain CBC Follow Up, BLOOD PRESSURE
Prescriptions:
No Action
diltiazem HCl 240 MG capsule,extended release 24hr
240 mg PO DAILY
cyanocobalamin (vitamin B-12) 1,000 MCG tablet
1,000 mcg PO DAILY
duloxetine 30 MG capsule,delayed release(DR/EC)
30 mg PO DAILY
Eliquis 5 MG tablet
5 mg PO BID
atorvastatin 20 mg Tablet
20 mg PO QPM
pyridoxine (vitamin B6) [Vitamin B-6] 100 mg Tablet
100 mg PO DAILY
glipizide 5 mg Tablet
2.5 mg PO DAILY
coenzyme Q10 [Co Q-10] 10 mg Capsule
30 mg PO DAILY
cholecalciferol (vitamin D3) [Vitamin D3] 10 mcg (400 unit) Capsule
10 mcg PO DAILY
Referrals:
Anabel Elliott MD [Active, Gastroenterology]
David Corea MD [Active, Cardiology]
Ingrid Salgado DO [Family Provider, Family Practice]
Soren Lowe MD [Active, ENT]
Activity Restrictions/Additional Instructions:
As discussed you are placed on the chest pain hotline which means you should receive a phone call from the office in the next few do not please call to make an appointment as soon as possible. In addition please follow-up with the ENT/GI for
evaluation of your throat issues. Your blood pressure was elevated here in the ER.
Please continue to take your medicine as discussed and follow-up with your family doctor in the next several days. Return if any worsening of symptoms. Follow-up as scheduled for your phlebotomy.
Interventions
Interventions:
*Risk Screen - Suicide Last Done: 03/11/25 10:00
*General Assessment Last Done: 03/11/25 10:38
*Neglect/Abuse Screening Last Done: 03/11/25 10:00
*ED COVID-19 Vaccine History Last Done: 03/11/25 10:38
*ED Influenza Vaccine History Last Done: 03/11/25 10:38
[facility] Fall Risk Assessment Tool Last Done: 03/11/25 10:38
*Nursing Disposition Last Done: 03/11/25 13:03
ED- Cardiac Assessment Last Done: 03/11/25 10:38
Discharge Date and Time
Discharge Date/Time: 03/11/25 13:04
Print Language: MALAY
[2025-03-11 10:33] VITALS: BMI 37.2
[2025-03-11 10:38] VITALS: BP 197/99
[2025-03-11 10:44] LABS: Hematocrit 53.1 % (39.0-52.0); Hemoglobin 18.4 g/dL (13.0-18.0); Mean Corp Hgb Conc. 34.7 g/dL (33.0-37.0); Mean Corpuscular Volume 89.7 fL (80.0-94.0); Nucleated Red Blood Cells % 0 % (-); Platelet Count 173 10^3/uL (130-400); Red Cell Dist. Width 12.3 % (11.5-14.5)
[2025-03-11 10:54] LABS: INR 1.12; PT 14.5 Sec (11.4-14.6)
[2025-03-11 10:55] LABS: APTT 29.0 Sec (23.4-35.0)
[2025-03-11 11:01] LABS: ALT (SGPT) 40 U/L (0-50); AST (SGOT) 35 U/L (17-59); Albumin 4.7 g/dl (3.5-5.0); Alkaline Phosphatase 83 U/L (38-126); Blood Urea Nitrogen 21 mg/dl (9-20); Calcium 9.1 mg/dl (8.4-10.2); Carbon Dioxide 32 mmol/L (22-30); Chloride 99 mmol/L (98-107); Estimated Creatinine Clearance 88 ml/min; Glucose 201 mg/dl (70-99); Magnesium 1.7 mg/dl (1.6-2.3); Potassium 4.4 mmol/L (3.5-5.1); Sodium 136 mmol/L (135-145); Total Protein 7.6 g/dl (6.3-8.2); eGFR > 60.00
[2025-03-11 11:20] LABS: Troponin I < 0.012 ng/ml
[2025-03-11 11:46] VITALS: BP 158/99
[2025-03-11 11:47] VITALS: BP 158/99
[2025-03-11 12:43] LABS: Carboxyhemoglobin 2.7 %
== END 2025-03-11 13:04 | disposition home or self-care (01) ==
LOC: EMR 09:55
PROVIDERS: Nurse Practitioner; EMERGENCY PHYSICIAN Emergency Medicine; FAMILY PHYSICIAN Family Medicine
DX: R07.89 Other chest pain (principal); I48.0 Paroxysmal atrial fibrillation; I47.10 Supraventricular tachycardia, unspecified; I11.0 Hypertensive heart disease with heart failure; I50.9 Heart failure, unspecified; D45 Polycythemia vera; E78.00 Pure hypercholesterolemia, unspecified; G47.33 Obstructive sleep apnea (adult) (pediatric); K51.90 Ulcerative colitis, unspecified, without complications; Z03.89 Encounter for observation for other suspected diseases and conditions ruled out; Z79.01 Long term (current) use of anticoagulants; Z82.49 Family history of ischemic heart disease and other diseases of the circulatory system; Z87.11 Personal history of peptic ulcer disease; Z87.19 Personal history of other diseases of the digestive system; Z87.442 Personal history of urinary calculi; Z90.49 Acquired absence of other specified parts of digestive tract
CPT/HCPCS: 99283; 71046; 80053; 82375; 83735; 83880; 84484; 85025; 85610; 85730; 93005

== ENCOUNTER 2025-03-17 13:26 | Outpatient (RCR) | payer MEDICARE, SELFPAY ==
[2025-03-17 13:50] VITALS: BP 144/107
[2025-03-17 14:15] VITALS: BP 149/72
[2025-03-17 14:20] VITALS: BP 152/91
== END 2025-03-18 09:23 | disposition home or self-care (01) ==
LOC: OID 13:26
PROVIDERS: ATTENDING PHYSICIAN Nurse Practitioner Family
DX: D45 Polycythemia vera (principal)
CPT/HCPCS: 99195